=== PATIENT | female | born 1950 | race Caucasian/White ===

== ENCOUNTER 2018-07-31 11:09 | Outpatient (CLI) | payer MEDICARE, MEDICAID | END 2018-07-31 11:10 | disposition home or self-care (01) | LOC: MADEKG 11:09 | PROVIDERS: ATTEND Family Medicine | DX: R07.9 Chest pain, unspecified (principal) | CPT/HCPCS: 93005; 93010 ==

== ENCOUNTER 2020-06-22 09:10 | Emergency (ER) | payer MEDICARE, OTHER ==
[2020-06-22] MEDS ORDERED: Clindamycin 150 MG CAP ONE (09:37)
== END 2020-06-22 09:50 | disposition home or self-care (01) ==
LOC: MADERS 09:10
DX: K04.7 Periapical abscess without sinus (principal); L03.211 Cellulitis of face; E11.9 Type 2 diabetes mellitus without complications; E78.5 Hyperlipidemia, unspecified
CPT/HCPCS: 99282

== ENCOUNTER 2025-01-20 16:37 | Emergency (ER) | payer MEDICARE, MEDICAID ==
[~2025-01-20 16:37] MED LIST: Iopamidol 370 76% 100 ML VIAL ONE
[2025-01-20] MEDS ORDERED: Aspirin Chewable 81 MG TAB ONE (17:15)
[2025-01-20 17:28] LABS: Magnesium 1.6 mg/dL (1.6-2.6)
[2025-01-20 17:29] LABS: ALT (SGPT) 20 U/L (Less than 34); AST (SGOT) 28 U/L (11-34); Albumin 4.1 g/dL (3.1-4.5); Alkaline Phosphatase 99 U/L (40-110); Anion Gap 17 mmol/L (10-20); BUN (Urea Nitrogen) 18 mg/dL (9.8-20.1); Bilirubin, Total 0.1 mg/dL (0.3-1.2); Calc. Creatinine Clearance 0 mL/min (70-130); Calcium 10.3 mg/dL (7.8-10.44); Carbon Dioxide 23 mmol/L (23-31); Chloride 105 mmol/L (98-107); Globulin 4.0 g/dL (2.4-3.5); Glucose 246 mg/dL (83-110); Lipase 34 U/L (8-78); Potassium 3.8 mmol/L (3.5-5.1); Sodium 141 mmol/L (136-145); Troponin I Less than 0.010 ng/mL (< 0.028)
[2025-01-20 17:32] LABS: Hematocrit 37.0 % (36.0-47.0); Hemoglobin 11.7 g/dL (12.0-16.0); Mean Corpuscular Hemoglobin 31.0 pg (27.0-31.0); Mean Corpuscular Volume 97.8 fl (78.0-98.0); Platelet Count 487 10x3/uL (130-400); Red Blood Cell (RBC) Count 3.78 mill/uL (4.20-5.40); White Blood Cell (WBC) Count 6.7 10x3/uL (4.8-10.8)
[2025-01-20 17:51] LABS: MDiff Complete? YES; Manual Diff?? YES
[2025-01-20 17:52] LABS: Platelet Adequacy Comment Appears Increased
[2025-01-20 19:47] LABS: Troponin I Less than 0.010 ng/mL (< 0.028)
== END 2025-01-20 20:09 | disposition home or self-care (01) ==
LOC: MADERS 16:37
DX: R91.8 Other nonspecific abnormal finding of lung field (principal); E11.65 Type 2 diabetes mellitus with hyperglycemia; N17.9 Acute kidney failure, unspecified; R00.0 Tachycardia, unspecified; E78.5 Hyperlipidemia, unspecified; I10 Essential (primary) hypertension; Z79.84 Long term (current) use of oral hypoglycemic drugs
CPT/HCPCS: 71045; 71275; 80053; 83690; 83735; 84443; 84484; 85025; 85379; 93005; 94760; 96360; J7120; Q9967